=== PATIENT | female | born 1955 | race Caucasian/White ===

== ENCOUNTER 2023-09-09 22:22 | Emergency (ER) | payer MEDICARE, OTHER, SELFPAY ==
[2023-09-09 22:33] VITALS: BP 138/83; PULSE 80; RESP 16; TEMP 36.6; O2SAT 95
--- NOTE | 2023-09-09 22:34 | XRR_ITS ---
PROCEDURE INFORMATION: Exam: XR Right Knee Exam date and time: 09/09/2023 11:25 PM Age: 68 years old Clinical indication: Pain; Knee; Right TECHNIQUE: Imaging protocol: Radiologic exam of the right knee. Views: 3 views. COMPARISON: No relevant prior studies available. FINDINGS: Bones/joints: Normal. Soft tissues: Normal. XR/XR knee RT 3V* [id number] IMPRESSION: No acute findings.
--- NOTE | 2023-09-09 23:34 | W.ED.EXTPRO ---
Documented by User: [email or web address] Giang 09/10/23 00:57 HPI - Extremity Problem General: Chief complaint: Extremity Injury, Lower Stated complaint: Right Knee Pain Time Seen by Provider: 09/09/23 23:09 Source: patient Mode of arrival: ambulatory Limitations: no limitations History of Present Illness: Patient is a 68-year-old female who presents to the emergency department complaining of right knee pain onset today. Patient states she was walking when she notes a sudden pop sensation to her medial right knee. She reports multiple surgeries to both knees, stating she has had meniscus repairs in the past as well as a left ACL repair. She states that her current pain feels similar to when she injured her meniscus in the past. She reports some associated swelling and pain extending proximally and distally to the right knee, otherwise denies any bruising, redness, numbness, or any other symptoms. Pain is dull minimally relieved by ice, NSAIDs, and hydrocodone that she had at home. Pain specifically worsened with weightbearing. Associated symptoms: Deny chest pain, fever(s) or rash Review of Systems General: Reports: 10 or more systems reviewed and unremarkable except in HPI and below Const: Denies: fever(s), chills or fatigue Eyes: Denies: change in vision ENMT: Denies: throat pain, ear or mastoid pain or nasal discharge Card: Denies: chest pain, palpitations, swelling of feet/ankles or lightheadedness Resp: Denies: dyspnea, productive cough or wheezing GI: Denies: abdominal pain, nausea, vomiting, diarrhea or constipation : Denies: flank pain, difficulty voiding, dysuria or urinary frequency Musc: Reports: joint pain (Right knee) and joint swelling (Right knee); Denies: neck pain, back pain, joint redness or joint warmth Skin/Breast: Denies: rash Neuro: Denies: headache(s), numbness in extremities or weakness in extremities Physical Exam Const: COMMON NORMALS: no acute distress, patient oriented x3 and no limitations GENERAL APPEARANCE: cooperative, comfortable and well developed ORIENTATION/CONSCIOUSNESS: Yes awake, Yes oriented to person, Yes oriented to place and Yes oriented to time HENMT: COMMON NORMALS: normocephalic, atraumatic and hearing grossly normal bilaterally HEAD & SCALP: normocephalic and atraumatic Neck/C-Spine: COMMON NORMALS: full ROM and supple Resp: COMMON NORMALS: normal respiratory effort, No retractions and No use of accessory muscles Extremity: COMMON NORMALS: normal to inspection, full ROM and capillary refill normal OTHER: There is tenderness to palpation along the medial joint line of the right knee. No significant swelling noted about the right knee. There is pain with passive flexion and extension at the right knee. No appreciable joint effusion. Negative anterior and posterior drawer. Negative varus and valgus testing. Negative Caitie. Neuro: COMMON NORMALS: patient oriented x3, moves all extremities, no focal motor deficits and no sensory deficits noted SENSORIUM/ORIENTATION: Yes oriented to person, Yes oriented to place and Yes oriented to time Psych: COMMON NORMALS: mental status grossly normal and Normal thought process present THOUGHT PROCESS: Normal thought process present Skin: COMMON NORMALS: no rashes or lesions noted GENERAL SKIN EXAM: no rashes or lesions noted Course Vital Signs: Vital signs: Vital Signs Temperature 97.8 F 09/09/23 22:33 Pulse Rate 80 09/09/23 22:33 Respiratory Rate 16 09/09/23 22:33 Blood Pressure 138/83 09/09/23 22:33 Pulse Oximetry 95 09/09/23 22:33 Oxygen Delivery Me thod Room Air 09/09/23 22:33 MDM - Extremity (Nontraumatic) Medical Decision Making This patient was seen and evaluated in the emergency department today for acute onset of right knee pain. Patient reports history of multiple injuries to both knees, requiring surgery. She compares the pain to a prior meniscal injury. Vitals are normal. On examination, patient demonstrated pain with passive range of motion but had negative special knee testing. X-ray of the right knee failed to demonstrate any signs of acute fracture or dislocation. I believe the patient's right knee pain can be initially treated conservatively for potential sprain versus contusion, however if her symptoms do not improve in the next week she is instructed to follow-up with primary care for any further testing. She agrees with this plan. She will take Tylenol and ibuprofen, and will abide by RICE therapy. Patient discharged home. Lab Data Radiology Impressions Knee X-Ray 09/09/23 22:34 IMPRESSION: No acute findings. All radiology interpretation(s) finalized by discharge Discharge Plan Discharge Patient Disposition: Home Clinical Impression: Acute pain of right knee Condition: Stable Discharge Orders: Discharge ED (Routine); Ordered 09/10/23 Ordered By: David Chávez Discharge Diet: Usual diet Discharge Activity: Limit activity as instructed and Use walker/crutches as instructed Patient Instructions: Knee Pain (ED), RICE Therapy Activity Restrictions/Additional Instructions: Use crutches for nonweightbearing. Tylenol and ibuprofen as needed. Rest, ice, compression, and elevation. If your symptoms do not improve in the next week, follow-up with your primary care provider for further evaluation. Coding Level of Care Code ED [employer] for [facility]g Fwd Documented by User: Mohinder Vidal DO 09/10/23 06:18 HPI - Extremity Problem General: Chief complaint: Extremity Injury, Lower Stated complaint: Right Knee Pain Time Seen by Provider: 09/09/23 23:09 Course Vital Signs: Vital signs: Vital Signs Temperature 97.8 F 09/09/23 22:33 Pulse Rate 80 09/09/23 22:33 Respiratory Rate 16 09/09/23 22:33 Blood Pressure 138/83 09/09/23 22:33 Pulse Oximetry 95 09/09/23 22:33 Oxygen Delivery Me thod Room Air 09/09/23 22:33 MDM - Extremity (Nontraumatic) Medical Decision Making This patient was seen and evaluated in the emergency department today for acute onset of right knee pain. Patient reports history of multiple injuries to both knees, requiring surgery. She compares the pain to a prior meniscal injury. Vitals are normal. On examination, patient demonstrated pain with passive range of motion but had negative special knee testing. X-ray of the right knee failed to demonstrate any signs of acute fracture or dislocation. I believe the patient's right knee pain can be initially treated conservatively for potential sprain versus contusion, however if her symptoms do not improve in the next week she is instructed to follow-up with primary care for any further testing. She agrees with this plan. She will take Tylenol and ibuprofen, and will abide by RICE therapy. Patient discharged home. Chart reviewed and patient discussed with midlevel. Agree with assessment and plan. Lab Data Radiology Impressions Knee X-Ray 09/09/23 22:34 IMPRESSION: No acute findings. Discharge Plan Discharge Patient Disposition: Home Clinical Impression: Acute pain of right knee Condition: Stable Discharge Orders: Discharge ED (Routine); Ordered 09/10/23 Ordered By: David Chávez Discharge Diet: Usual diet Discharge Activity: Limit activity as instructed and Use walker/crutches as instructed Patient Instructions: Knee Pain (ED), RICE Therapy Activity Restrictions/Additional Instructions: Use crutches for nonweightbearing. Tylenol and ibuprofen as needed. Rest, ice, compression, and elevation. If your symptoms do not improve in the next week, follow-up with your primary care provider for further evaluation. Coding Level of Care Code ED [employer] for Brit Ramires
== END 2023-09-10 00:27 | disposition home or self-care (01) ==
PROVIDERS: Emergency Provider Physician Assistant
DX: M25.561 Pain in right knee (principal)
CPT/HCPCS: 73562; 99283; E0114